=== PATIENT | male | born 1970 | race Caucasian/White ===

== ENCOUNTER 2020-10-19 21:33 | Emergency (ER) | payer OTHER ==
[~2020-10-19 21:33] MED LIST: ANTI-ITCH28 GM TP; FELDENE10 MG PO; LODINE CAP 300300 MG PO; Magic Mouth Wash PO; NORCO 5-325 TA1 EACH PO; NORFLEX 100 MG100 MG PO; PERCOCET 5/325 T1 EA PO; PREDNISONE 50 M50 MG PO; Voltaren Gel 1 % TOP
[2020-10-19 22:59] LABS: HEMOGLOBIN 13.3 gm/dl (14.0-17.5); RED BLOOD COUNT 4.24 M/UL (4.20-5.50); WHITE BLOOD COUNT 11.6 K/UL (4.5-11.0)
[2020-10-19 23:38] LABS: BUN/CREATININE RATIO 20 (0-10)
== END 2020-10-20 02:03 | disposition home or self-care (01) ==
LOC: ER1 21:33
PROVIDERS: Physician Assistant
DX: F15.10 Other stimulant abuse, uncomplicated (principal); F91.1 Conduct disorder, childhood-onset type; Z79.01 Long term (current) use of anticoagulants; Z86.718 Personal history of other venous thrombosis and embolism; Z79.899 Other long term (current) drug therapy
CPT/HCPCS: 71045; 80053; 80307; 82550; 82553; 83874; 84484; 85025; 93005; 99284; G0480